=== PATIENT | female | born 2000 | race Caucasian/White ===

== ENCOUNTER 2022-08-19 15:32 | Emergency (ER) | payer OTHER, SELFPAY ==
[2022-08-19] VITALS (8 sets, daily range): BP systolic 110–137; BP diastolic 55–70; PULSE 88–111; RESP 17; TEMP 36.6; O2SAT 98–100; BMI 36.0
--- NOTE | 2022-08-19 19:11 | ED_ITS ---
HPI - Headache <Carlos Petit PA-C - Last Filed: 08/19/22 20:29> General Chief Complaint: Headache Stated Complaint: Headaches/Migraines, Meds Not Helping Time Seen by Provider: 08/19/22 18:35 Mode of arrival: Ambulatory History of Present Illness HPI Narrative: 22-year-old female with no reported past medical history presents to the ED with 12 days of headache. Patient states that some days she wakes up with a headache, whereas some days the headache starts somewhere during the day. Onset of headache is gradual. Patient states she has not been taking medications for the headache. Patient describes the headache as behind her eyes. Patient endorses photophobia, phonophobia. Patient denies changes in vision. Patient denies fevers, chills, neck stiffness, neck pain, vomiting. Patient does endorse nausea. Patient states she has had prior headaches, with several headaches last December. Patient states this headache is different than the last headache in that it is more behind her eyes, whereas the prior headaches were at the back of her head. Patient is on oral contraceptive pills. Patient was seen at a walk-in clinic, was given a Toradol shot and prescribed diclofenac, however it provided no relief per patient. Related Data Home Medications Medication Instructions Recorded Confirmed diclofenac sodium 75 mg 75 mg PO DAILY 08/19/22 08/19/22 tablet,delayed release norethindrone 1 mg-ethinyl 1 tab PO DAILY 08/19/22 08/19/22 estradiol 35 mcg tablet Previous Rx's Medication Instructions Recorded sumatriptan succinate 50 mg tablet 50 mg PO Q2-4H PRN migraine 08/19/22 headache #9 tabs Allergies Allergy/AdvReac Type Severity Reaction Status Date / Time No Known Drug Allergies Allergy Verified 08/19/22 15:56 Review of Systems <Carlos ePtit PA-C - Last Filed: 08/19/22 20:29> Review of Systems ROS Unobtainable: All systems reviewed & are unremarkable except as noted in HPI and below Constitutional Constitutional: Denies chills, Denies fatigue, Denies fever(s), Denies frequent falls, Reports headache(s), Denies lethargy and Denies weakness Eyes Eyes: Denies change in vision, Denies eye discharge, Denies irritation, Denies loss of vision and Reports photophobia ENT Ears, Nose, Mouth, and Throat: Denies change in voice, Denies dizziness, Reports headache(s), Denies neck pain, Denies sore throat and Denies throat swelling Comments: phonophobia Cardiovascular Cardiovascular: Denies chest pain, Denies irregular heart rhythm, Denies lightheadedness, Denies palpitations, Denies dyspnea, Denies dyspnea on exertion and Denies orthopnea Respiratory Respiratory: Denies cough, Denies dyspnea, Denies dyspnea on exertion and Denies wheezing Gastrointestinal Gastrointestinal: Denies abdominal pain, Denies change in bowel habits, Denies diarrhea, Reports nausea and Denies vomiting Genitourinary Genitourinary: Denies hematuria, Denies flank pain, Denies urinary incontinence and Denies urinary urgency Musculoskeletal Musculoskeletal: Denies back pain, Denies muscle weakness, Denies neck pain, Denies numbness and Denies tingling Integumentary/Breasts Skin/Breast: Denies pruritus, Denies erythema, Denies rash and Denies wounds Neurologic Neurologic: Denies behavioral changes, Denies confusion, Denies dizziness, Denies frequent falls, Reports headache(s), Denies loss of vision, Denies numbness, Denies tingling and Denies weakness Psychiatric Psychiatric: Denies anxiety, Denies behavioral changes, Denies confusion, Denies depression, Denies homicidal ideation and Denies suicidal ideation Endocrine Endocrine: Denies fatigue, Denies flushing and Denies palpitations Hematologic/Lymphatic Hematologic/Lymphatic: Denies easy bruising Allergic/Immunologic Allergic/Immunologic: Denies urticaria, Denies throat swelling and Denies wheezing Patient History <Carlos Petit PA-C - Last Filed: 08/19/22 20:29> Social History Smoking Status: Current every day smoker Smoking Status: Current every day smoker tobacco type: vaping alcohol intake frequency: holidays/special occasions only Substance Use Type: does not use Exam <Carlos Petit PA-C - Last Filed: 08/19/22 20:29> Narrative Exam Narrative: Const General:?cooperative, healthy appearing and comfortable [facility] Head:?normal to inspection Ears:?hearing grossly normal bilaterally Nose:?external nose normal Face and sinus:?normal facial exam and sinuses nontender Mouth:?oral mucosae normal Throat:?posterior oropharynx normal Eyes General:?appearance normal, both eyes and all related structures Neck Neck:?normal visual inspection and no lymphadenopathy noted Resp Effort & Inspection:?normal respiratory effort Auscultation:?clear to auscultation bilaterally Cardio Rate:?regular rate Rhythm:?regular rhythm Neuro General:?patient alert, patient awake and patient oriented x3; CN 1 through 12 intact bilaterally; gait normal; strength and sensation intact; full range of motion; [id number] negative; negative pronator drift. Initial Vital Signs Initial Vital Signs: Vital Signs Temperature 98 F 08/19/22 15:52 Pulse Rate 97 H 08/19/22 15:52 Respiratory Rate 17 08/19/22 15:52 Blood Pressure 137/63 08/19/22 15:52 Pulse Oximetry 98 08/19/22 15:52 Oxygen Delivery Method 08/19/22 15:52 <Mila Noble MD - Last Filed: 08/19/22 20:46> Initial Vital Signs Initial Vital Signs: Vital Signs Temperature 98 F 08/19/22 15:52 Pulse Rate 97 H 08/19/22 15:52 Respiratory Rate 17 08/19/22 15:52 Blood Pressure 137/63 08/19/22 15:52 Pulse Oximetry 98 08/19/22 15:52 Oxygen Delivery Method 08/19/22 15:52 Course <Carlos Petit PA-C - Last Filed: 08/19/22 20:29> Orders Ordered: Discontinued Medications Acetaminophen (Acetaminophen 325 Mg Tablet) 975 mg PO NOW ONE Stop: 08/19/22 19:07 Last Admin: 08/19/22 19:48 Dose: 975 mg Documented By: MATTHIAS Dexamethasone (Dexamethasone 10 Mg/Ml Vial) 10 mg IV NOW ONE Stop: 08/19/22 19:07 Last Admin: 08/19/22 19:47 Dose: 10 mg Documented By: MATTHIAS Diphenhydramine HCl (Diphenhydramine 50 Mg/Ml Vial) 50 mg IV NOW ONE Stop: 08/19/22 19:09 Last Admin: 08/19/22 19:47 Dose: 50 mg Documented By: MATTHIAS Magnesium Sulfate (Magnesium Sulfate) 2 gm in 50 mls @ 150 mls/hr IV NOW ONE Stop: 08/19/22 19:25 Last Infusion: 08/19/22 20:32 Dose: 0 mls/hr Documented By: MATTHIAS Co-signed By: TOSHA Admin: 08/19/22 20:05 Dose: 150 mls/hr Documented By: MATTHIAS Co-signed By: [facility] Sodium Chloride (Normal Saline 0.9%) 1,000 mls @ 1,000 mls/hr IV BOLUS ONE Stop: 08/19/22 20:08 Last Infusion: 08/19/22 20:33 Dose: 0 mls/hr Documented By: Admin: 08/19/22 19:44 Dose: 1,000 mls/hr Documented By: MATTHIAS Ketorolac Tromethamine (Ketorolac 30 Mg/Ml Vial) 15 mg IV NOW ONE Stop: 08/19/22 19:07 Last Admin: 08/19/22 19:45 Dose: 15 mg Documented By: MATTHIAS Metoclopramide HCl (Metoclopramide 10 Mg/2 Ml Inj) 10 mg IV NOW ONE Stop: 08/19/22 19:07 Last Admin: 08/19/22 19:48 Dose: 10 mg Documented By: MATTHIAS Vital Signs Vital signs: Vital Signs - 8 hr 08/19/22 15:52 Temperature 98 F Pulse Rate 97 H Respiratory Rate 17 Blood Pressure 137/63 Pulse Oximetry 98 Oxygen Delivery Method Room Air <Mila Noble MD - Last Filed: 08/19/22 20:46> Orders Ordered: Discontinued Medications Acetaminophen (Acetaminophen 325 Mg Tablet) 975 mg PO NOW ONE Stop: 08/19/22 19:07 Last Admin: 08/19/22 19:48 Dose: 975 mg Documented By: MATTHIAS Dexamethasone (Dexamethasone 10 Mg/Ml Vial) 10 mg IV NOW ONE Stop: 08/19/22 19:07 Last Admin: 08/19/22 19:47 Dose: 10 mg Documented By: MATTHIAS Diphenhydramine HCl (Diphenhydramine 50 Mg/Ml Vial) 50 mg IV NOW ONE Stop: 08/19/22 19:09 Last Admin: 08/19/22 19:47 Dose: 50 mg Documented By: MATTHIAS Magnesium Sulfate (Magnesium Sulfate) 2 gm in 50 mls @ 150 mls/hr IV NOW ONE Stop: 08/19/22 19:25 Last Infusion: 08/19/22 20:32 Dose: 0 mls/hr Documented By: MATTHIAS Co-signed By: TOSHA Admin: 08/19/22 20:05 Dose: 150 mls/hr Documented By: MATTHIAS Co-signed By: HERMELINDA Sodium Chloride (Normal Saline 0.9%) 1,000 mls @ 1,000 mls/hr IV BOLUS ONE Stop: 08/19/22 20:08 Last Infusion: 08/19/22 20:33 Dose: 0 mls/hr Documented By: Admin: 08/19/22 19:44 Dose: 1,000 mls/hr Documented By: MATTHIAS Ketorolac Tromethamine (Ketorolac 30 Mg/Ml Vial) 15 mg IV NOW ONE Stop: 08/19/22 19:07 Last Admin: 08/19/22 19:45 Dose: 15 mg Documented By: MATTHIAS Metoclopramide HCl (Metoclopramide 10 Mg/2 Ml Inj) 10 mg IV NOW ONE Stop: 08/19/22 19:07 Last Admin: 08/19/22 19:48 Dose: 10 mg Documented By: MATTHIAS Vital Signs Vital signs: Vital Signs - 8 hr 08/19/22 15:52 Temperature 98 F Pulse Rate 97 H Respiratory Rate 17 Blood Pressure 137/63 Pulse Oximetry 98 Oxygen Delivery Method Room Air MDM - Headache <Carlos Petit PA-C - Last Filed: 08/19/22 20:29> Lab Data Labs: Point of Care Testing Test Results Negative Urine Dip Bedside Urine Glucose Negative Bedside Urine Bilirubin - Negative Bedside Urine Ketone - Negative Urine Specific [place] 1.015 Bedside Urine Occult Blood - Negative Bedside Urine pH 7.5 Bedside Urine Protein - Negative Bedside Urine Urobilinogen - Negative Bedside Urine Nitrite - Negative Bedside Urine Leukocytes - Negative Esterase MDM Narrative Medical decision making narrative: 22-year-old female with no reported past medical history presents to the ED with 12 days of headache. Concern for primary headache. History is reassuring with no neck stiffness, neck pain, no meningeal signs on physical exam, fever, chills. Headaches are not thunderclap headaches, but with gradual onset, unlikely subarachnoid hemorrhage. Patient appears neurologically intact on exam. Will treat with Tylenol, ketorolac, IV fluids, dexamethasone, Reglan, Benadryl, magnesium. Will reassess. ? Medical records reviewed:??yes ? Patient signed out to Dr. Mila Noble. <Mila Noble MD - Last Filed: 08/19/22 20:46> Lab Data Labs: Point of Care Testing Test Results Negative Urine Dip Bedside Urine Glucose Negative Bedside Urine Bilirubin - Negative Bedside Urine Ketone - Negative Urine Specific [place] 1.015 Bedside Urine Occult Blood - Negative Bedside Urine pH 7.5 Bedside Urine Protein - Negative Bedside Urine Urobilinogen - Negative Bedside Urine Nitrite - Negative Bedside Urine Leukocytes - Negative Esterase MDM Narrative Medical decision making narrative: 22-year-old female with no reported past medical history presents to the ED with 12 days of headache. Concern for primary headache. History is reassuring with no neck stiffness, neck pain, no meningeal signs on physical exam, fever, chills. Headaches are not thunderclap headaches, but with gradual onset, unlikely subarachnoid hemorrhage. Patient appears neurologically intact on exam. Will treat with Tylenol, ketorolac, IV fluids, dexamethasone, Reglan, Benadryl, magnesium. Will reassess. ? Medical records reviewed:??yes ? Patient signed out to Dr. Mila Noble. 840pm care of this patient is accepted. She is independently examined after all medications listed above been administered. She is feeling significantly better. On further questioning it does sound like she has a pattern of migraine headaches. She is recently switched from an oral control pill that contains estrogen to 1 that does not, which should actually help. She typically uses Excedrin which does help but she has periods where she will have recurrent headaches such as this most recent episode and times were the headache will be much more severe and much more acute in onset which is more consistent with migraine. She does report visual abnormalities, lytes to bright, sounds to loud associated with these more severe headaches. At this point she is significantly improved. I think that this is a migraine variant rather than any more concerning finding that would require imaging. We did discuss ?red flag? findings that would require her to return to the emergency department. We also discussed head imaging and she understands why it is not indicated at this time. Recommended she continue with oral Excedrin for her mild headaches and she is given a prescription for Imitrex to use for the severe headaches along with risks, benefits, appropriate usage as well as concerns with overusage. Will ask her to follow-up with her primary care doctor regarding her headaches. Discharge Plan Departure Patient Disposition: Home Clinical Impression: Migraine Instructions: DI for Migraine Activity Restrictions/Additional Instructions: Thank you for coming in today I suspect that this extended 12 days of headache is a migraine variant. It seems to have responded nicely to all of the medications that we did give you in the emergency department. One of those medications is a steroid to try and help prevent recurrent he adaches once all of the other medications wear off. We talked briefly about migraine headaches, I am going to give you a prescription for sumatriptan. This is a medication specifically for migraine headaches. If you find that it does not work for your severe headaches you do not need to continue it. It is okay to use Excedrin for mild headaches and it is okay to use Excedrin at the same time you are using Imitrex. I encourage you to follow-up with your primary care doctor regarding your headaches. If you find that you are getting worse or develop any new symptoms, please feel free to return to the emergency department for further evaluation. Prescriptions: New sumatriptan succinate 50 mg tablet 50 mg PO Q2-4H PRN (Reason: migraine headache) Qty: 9 1RF Rx Instructions: do not exceed 4 doses per 24 hrs No Action diclofenac sodium 75 mg tablet,delayed release (DR/EC) 75 mg PO DAILY Label Comments: TAKE 1 TABLET BY MOUTH TWICE DAILY NEEDED FOR PAIN Norethin 135E (28) 1-35 mg-mcg Tablet 1 tab PO DAILY Referrals: Miscellaneous,Doctor, MD [Primary Care Provider] - Stand Alone Forms: Patient Portal/API
[2022-08-19] MEDS: SODIUM CHLORIDE 0.9% 1,000 ML 1000 ML IV (19:44)
[2022-08-19] MEDS: KETOROLAC 30 MG/ML VIAL 15 MG IV (19:45)
[2022-08-19] MEDS: DEXAMETHASONE 10 MG/ML VIAL IV (19:47)
[2022-08-19] MEDS: diphenhydrAMINE 50 MG/ML VIAL IV (19:47)
[2022-08-19] MEDS: ACETAMINOPHEN 325 MG TABLET 975 MG PO (19:48)
[2022-08-19] MEDS: METOCLOPRAMIDE 10 MG/2 ML INJ IV (19:48)
[2022-08-19] MEDS: MAGNESIUM SULFATE 2 GM/50 ML PIGGYBACK IV (20:05)
== END 2022-08-19 20:52 | disposition home or self-care (01) ==
PROVIDERS: Emergency Provider Student in an Organized Health Care Education/Training Program
DX: G43.909 Migraine, unspecified, not intractable, without status migrainosus (principal)
CPT/HCPCS: 81003; 81025; 96361; 96374; 96375; 99284; J1100; J1200; J1885; J2765; J3475